=== PATIENT | female | born 1970 | race African-American/Black ===

== ENCOUNTER 2016-11-26 12:38 | Day surgery (SDC) | payer OTHER ==
[~2016-11-26] VITALS: Ht 154.9 cm; Wt 78.0 kg
[~2016-11-26 12:38] MED LIST: ENDOCET 5-3251 EACH PO; IBUPROFEN800 MG PO; KLONOPIN1 MG PO; MOBIC7.5 MG PO; NORVASC5 MG PO; PERCOCET 5/31 TABLET PO; PROAIR HFA8.5 GM IH; SLEEP AID50 MG PO; TYLENOL EXTRA500 MG PO; VICODIN 5-3001 EACH PO
[2016-11-26 12:57] VITALS: BP 123/83
[2016-11-26] MEDS ORDERED: NORCO 5/3251 TABLET PO (15:59)
[2016-11-26 16:35] VITALS: BP 155/78
[2016-11-26 17:22] VITALS: BP 134/84
== END 2016-11-26 17:35 | disposition home or self-care (01) ==
LOC: SDC
PROC: 02HV33Z Insertion of Infusion Device into Superior Vena Cava, Percutaneous Approach (ICD-10-PCS; principal; 2016-11-26)
DX: C50.919 Malignant neoplasm of unspecified site of unspecified female breast (principal); F17.200 Nicotine dependence, unspecified, uncomplicated
CPT/HCPCS: 71010; C1751; J0690; J1885; J2250; J3010

== ENCOUNTER 2017-06-11 23:42 | Emergency (ER) | payer OTHER ==
[~2017-06-11] VITALS: Ht 154.9 cm; Wt 80.4 kg
[~2017-06-11 23:42] MED LIST changes: +B COMPLETE1 EACH PO; +NORCO 5/3251 TABLET PO
[2017-06-12] MEDS ORDERED: SKELAXIN800 MG PO (01:09)
[2017-06-12] MEDS ORDERED: NORCO 5/3251 TABLET PO (01:09)
[2017-06-12 01:50] VITALS: BP 145/103
== END 2017-06-12 01:51 | disposition home or self-care (01) ==
LOC: EME 23:42
DX: M54.9 Dorsalgia, unspecified (principal); M54.2 Cervicalgia; V49.50XA Passenger injured in collision with unspecified motor vehicles in traffic accident, initial encounter
CPT/HCPCS: 99281; 99283

== ENCOUNTER → 2017-07-23 | Outpatient (CLI) | payer OTHER ==
[~2017-07-23] MED LIST changes: +CYMBALTA60 MG PO; +NEURONTIN400 MG PO; +SKELAXIN800 MG PO
== END | disposition home or self-care (01) ==
LOC: AMB 08:15
DX: Z45.2 Encounter for adjustment and management of vascular access device (principal); Z85.3 Personal history of malignant neoplasm of breast; Z92.21 Personal history of antineoplastic chemotherapy

== ENCOUNTER 2017-08-29 20:57 | Emergency (ER) | payer OTHER ==
[~2017-08-29] VITALS: Ht 154.9 cm; Wt 81.4 kg
[2017-08-29 23:25] LABS: HEMATOCRIT 34.3 % (36.0-46.0); MCH 28.9 PG (29.0-34.0); MCHC 33.2 G/DL (30.0-36.0); MCV 86.8 FL (83-99); MEAN PLAT.VOLUME 12.3 uM^3 (9.5-12.4); PLATELET COUNT 173 K/uL (156-360); RBC DIS.WIDTH-CV 13.7 % (11.8-14.6); RBC DIS.WIDTH-SD 43.8 % (39-53); RED BLOOD COUNT 3.95 M/uL (3.80-5.20); WHITE BLOOD COUNT 6.2 K/uL (4.1-10.2)
[2017-08-29 23:45] LABS: CHLORIDE 109 mEq/L (99-109); SODIUM 142 mEq/L (136-147)
[2017-08-29 23:46] LABS: GLUCOSE 123 mg/dL (70-99)
[2017-08-29 23:47] LABS: TROP-I INTERPRETATION NEGATIVE; TROPONIN-I < 0.01 ng/mL (0.0-0.30)
[2017-08-29 23:48] LABS: ANION GAP 10 MEQ/L (2-14)
[2017-08-29 23:50] LABS: GFR ESTIMATE (CALCULATED) > 59 mL/min/
[2017-08-29 23:51] LABS: UREA NITROGEN (BUN) 16 mg/dL (9-23)
[2017-08-30 02:39] LABS: TROP-I INTERPRETATION NEGATIVE; TROPONIN-I < 0.01 ng/mL (0.0-0.30)
[2017-08-30 04:01] VITALS: BP 114/72
== END 2017-08-30 04:01 | disposition home or self-care (01) ==
LOC: EME 20:57
PROVIDERS: Emergency Medicine
DX: R07.9 Chest pain, unspecified (principal); F41.1 Generalized anxiety disorder; R11.0 Nausea; R42 Dizziness and giddiness; I10 Essential (primary) hypertension; Z91.14 Patient's other noncompliance with medication regimen; Z85.3 Personal history of malignant neoplasm of breast; Z90.710 Acquired absence of both cervix and uterus; Z87.891 Personal history of nicotine dependence
CPT/HCPCS: 71020; 80048; 84484; 85027; 93005; 99281; 99285

== ENCOUNTER → 2018-05-06 | Outpatient (CLI) | payer OTHER | END | disposition home or self-care (01) | LOC: CDC 15:47 | DX: Z01.810 Encounter for preprocedural cardiovascular examination (principal); M20.22 Hallux rigidus, left foot; M25.572 Pain in left ankle and joints of left foot; R94.31 Abnormal electrocardiogram [ECG] [EKG] | CPT/HCPCS: 93000 ==